=== PATIENT | male | born 1975 | race Caucasian/White ===

== ENCOUNTER 2020-02-16 10:57 | Emergency (ER) | payer OTHER, SELFPAY ==
--- NOTE | ~2020-02-16 | XR_ITS ---
XR wrist RT min 3V 02/16/2020 12:28 INDICATION: Right wrist pain PROCEDURE: 4 views right wrist COMPARISON: No prior studies for comparison. FINDINGS: Fracture, dislocation or subluxation is not identified. The soft tissues appear within norm al limits. No foreign bodies are identified. IMPRESSION: 1: NO ACUTE BONE OR JOINT ABNORMALITY IDENTIFIED. Reviewed, dictated and finalized at location A.
--- NOTE | ~2020-02-16 | CT_ITS ---
EXAMINATION: CT brain wo con DATE: 02/16/2020 12:41 INDICATION: Head injury. Possible loss of consciousness. TECHNIQUE: Computed tomography (CT) of the head was performed without intravenous contrast. The dose- length product was 605.33 mGy-cm. The mA was adjusted according to patient size. Iterative reconstruc tion technique was employed. COMPARISON: None FINDINGS: No acute intracranial hemorrhage, infarction, mass or mass effect. No ventriculomegaly or m idline shift. Basilar cisterns are patent. Paranasal sinuses and mastoids are pneumatized. No depress ed skull fractures. Midline sagittal images are unremarkable. IMPRESSION: 1. No acute intracranial abnormality. Reviewed, dictated and finalized at location A.
[2020-02-16 11:10] VITALS: BP 148/104; PULSE 102; RESP 20; TEMP 36.4; O2SAT 97
--- NOTE | 2020-02-16 11:16 | PC.NURSE ---
patient refuses to change into hospital gown. uncooperative with assessment . states only wants wound to forehead treated at this time
--- NOTE | 2020-02-16 11:31 | ED.FALL ---
HPI - Fall General Chief Complaint: Fall Stated Complaint: Fall down 8 stairs Time Seen by Provider: 02/16/20 11:04 Source: patient Mode of arrival: ambulatory Limitations: no limitations History of Present Illness HPI Narrative: This is a 44 year old male that presents to the ER for a fall last night around 1AM. Reports he tripped and fell down about 8 steps. He did hit his head, unsure if he lost consciousness. Reports a laceration to the forehead and pain in the left wrist. Denies neck pain, back pain, vision changes, vomiting, numbness or weakness. Review of Systems Review of Systems: Narrative: CONSTITUTIONAL: Denies fever EYES: Denies visual changes GASTROINTESTINAL: Denies vomiting SKIN: Reports laceration MUSCULOSKELETAL: Reports joint pain. Denies back pain, or myalgia. NEUROLOGIC: Denies headache, numbness, or weakness. All systems reviewed & are unremarkable except as noted in HPI and below PMFSH Social History Social History (Updated 02/16/20 @ 11:33 by Jessy Sauceda PA-C) Alcohol intake: current Substance use: current Substance use type: crack/cocaine Exam Narrative: Exam Narrative: GENERAL: Well-appearing, well-nourished, and in no acute distress. HEAD: Normocephalic. 1 cm linear laceration into subcutaneous tissue over left side of forehead EYES: PERRLA and EOMI. ENT: Nares clear, no rhinorrhea or epistaxis. Mucous membranes moist. Oropharynx without tonsillar hypertrophy exudate or other lesions. Bilateral TMs pearly torres non-bulging NECK: Supple. No adenopathy or masses. No midline spinal tenderness. Normal range of motion CHEST: Clear to auscultation. No respiratory distress. No wheezes rales or rhonchi HEART: Regular rate and rhythm. No murmur heard. Normal peripheral pulses. BACK: No midline spinal tenderness EXTREMITIES: Normal range of motion. No edema or obvious deformity. SKIN: Warm, dry, no rash. NEURO: No focal deficits. Alert and oriented x3. Cranial nerves II through XII grossly intact PSYCH: Normal mood and affect Course Vital Signs Vital signs: Vital Signs Temperature 97.5 F L 02/16/20 11:10 Pulse Rate 102 H 02/16/20 11:10 Respiratory Rate 02/16/20 11:10 Blood Pressure 148/104 H 02/16/20 11:10 Pulse Oximetry 97 02/16/20 11:10 Temperature 97.5 F L 02/16/20 11:10 Pulse Rate 102 H 02/16/20 11:10 Respiratory Rate 20 02/16/20 11:10 Blood Pressure 148/104 H 02/16/20 11:10 Pulse Oximetry 97 02/16/20 11:10 Procedures Laceration Laceration 1: Date: 02/16/20 Time: 13:07 Site: face Side (If applicable): left Size (cm): 1 Description: linear Depth: simple, single layer Local Anesthetic: lidocaine 1% and with epi Amount of anesthesia used (mL): 1 Pre-repair: irrigated ====== Skin Level ====== Skin layer closed with: nylon Size (cm): 5-0 Number of sutures: 1 Technique: simple, interrupted ====== Subcutaneous Layer ====== ====== Muscle Layer ====== ====== Tendon Layer ====== Dressing: Dressed with antibiotic ointment, gauze and tape MDM - Fall MDM Narrative Medical decision making narrative: Patient presents to the emergency department for fall with head injury last night. Reports right wrist pain and laceration to forehead. Patient is neurologically intact. Vitals are stable. CT brain is without acute abnormalities. Right wrist x-ray is without acute changes. Patient was updated on tetanus. Wound was cleansed. Closed with 1 suture. Patient will be placed on oral antibiotics since this wound occurred 11 hours ago. He was instructed on wound care. He is to follow-up with primary care doctor. He was given warnings to return to the ER Imaging Data Radiologist's impression: ITS Impressions Wrist X-Ray 02/16/20 12:36 IMPRESSION: 1: NO ACUTE BONE OR JOINT ABNORMALITY IDENTIFIED. Head CT 02/16/20 12:44 IMPRES
[2020-02-16] MEDS: TETANUS,DIPHTHERIA,AC PERTUSSIS ADULT (0.5 ML) BOOSTRIX IM (11:47)
== END 2020-02-16 13:31 | disposition home or self-care (01) ==
PROVIDERS: Emergency Provider Emergency Medicine; PCP Internal Medicine
DX: S01.81XA Laceration without foreign body of other part of head, initial encounter (principal); M25.531 Pain in right wrist; Z23 Encounter for immunization; W10.9XXA Fall (on) (from) unspecified stairs and steps, initial encounter
CPT/HCPCS: 12011; 70450; 73110; 90471; 90715; 99284